=== PATIENT | female | born 1955 | race Caucasian/White ===

== ENCOUNTER → 2016-07-15 | Day surgery (SDC) | payer BC ==
[~2016-07-15] MED LIST: CYAN10005 PO; DOCU-27 PO; ESTR1TAB5 PO; FENTANYL PF 100 MCG/2 ML VIAL. IV PRN; HYDR-2678 PO; HYDROMORPHONE 2 MG/ML VIAL. IV PRN; IV RINGERS,LACTATED 1000ML 1,000 ML IV SCH; LEVO150T5 PO; LIDOCAINE 1% 1 ML SYRINGE. ID PRN; MORPHINE SULFATE 2 MG/ML DISP.SYRIN. IV PRN; NAPR220C4 PO; ONDANSETRON PF 4 MG/2 ML VIAL. IV PRN; PROCHLORPERAZINE 10 MG/2 ML VIAL. IV PRN; PROPOFOL 0 ML IV ONE; PROPOFOL 20 ML IV ONE; SERT100T PO
[2016-07-15 09:05] VITALS: BP 140/68
--- NOTE | 2016-07-16 13:24 | PATHOLOGY ---
PATHOLOGY REPORT * * * * * * * * FINAL DIAGNOSIS: Colorectal biopsy, rectal polyp: - Polypoid segment of ulcerated granulation tissue showing acute and chronic inflammation. COMMENT: Sections of the rectal polyp biopsy reveal a polypoid segment of ulcerated granulation tissue showing acute and chronic inflammation. There are focal hyperplastic glands at the base of the polypoid granulation tissue. There are no adenomatous changes or evidence of malignancy. (JPM:csd; d/t: 07/16/2016) REPORT ELECTRONICALLY SIGNED BY: Rolan Castro M.D. DATE/TIME: 07/16/2016 13:23 * * * * * * * * GROSS PATHOLOGY: Received in formalin labeled "Amy Ramos, rectal polyp," is a segment of ta soft tissue measuring 0.5 cm in maximum dimension. The specimen is submitted entirely in cassette A1. (CAA; 07/15/2016) INITIAL CPT CODE(S): A; 81438 Professional services performed [place] [facility] [place] [address] Technical services performed by [facility] at [address] [place] [address]. SPECIMEN(S) RECEIVED: A.Rectal polyp CLINICAL HISTORY: Rectal bleed PATIENT: AMY RAMOS /AGE: 3 1955 (Age: 60) PATIENT #: [id number] ALT CASE #: SPECIMEN COLLECTION DATE: 07/15/2016 SPECIMEN RECEIVED DATE: 07/15/2016 [facility] - [address] [place] [address] - PHONE: [phone] * * * END OF REPORT * * *
== END ==
LOC: SURG 07:28
PROVIDERS: ATTEND Internal Medicine Gastroenterology
DX: K62.1 Rectal polyp (principal); K57.30 Diverticulosis of large intestine without perforation or abscess without bleeding; K64.0 First degree hemorrhoids; K80.20 Calculus of gallbladder without cholecystitis without obstruction; K29.70 Gastritis, unspecified, without bleeding; K21.9 Gastro-esophageal reflux disease without esophagitis; K44.9 Diaphragmatic hernia without obstruction or gangrene; M19.90 Unspecified osteoarthritis, unspecified site; F32.9 Major depressive disorder, single episode, unspecified; E03.9 Hypothyroidism, unspecified; N28.9 Disorder of kidney and ureter, unspecified; Z72.89 Other problems related to lifestyle; Z98.890 Other specified postprocedural states
CPT/HCPCS: 45385; J2704; 88305

== ENCOUNTER 2016-07-18 12:01 | Emergency (ER) | payer BC ==
[~2016-07-18] VITALS: Ht 167.6 cm; Wt 89.4 kg
[~2016-07-18 12:01] MED LIST changes: -FENTANYL PF 100 MCG/2 ML VIAL. IV PRN; -HYDROMORPHONE 2 MG/ML VIAL. IV PRN; -IV RINGERS,LACTATED 1000ML 1,000 ML IV SCH; -LIDOCAINE 1% 1 ML SYRINGE. ID PRN; -MORPHINE SULFATE 2 MG/ML DISP.SYRIN. IV PRN; -ONDANSETRON PF 4 MG/2 ML VIAL. IV PRN; -PROCHLORPERAZINE 10 MG/2 ML VIAL. IV PRN; -PROPOFOL 0 ML IV ONE; -PROPOFOL 20 ML IV ONE
[2016-07-18 12:30] VITALS: BP 132/76
--- NOTE | 2016-07-18 12:40 | RAD ---
Left ankle and left foot radiographs History: Fall previous day, pain. Comparison: None. Findings: AP, lateral, and oblique views of the left ankle. No acute fracture dislocation is identified. Lateral ankle soft tissue swelling is seen. AP, lateral, and oblique views of the left foot. No acute fracture or dislocation is identified. Plantar calcaneal and Achilles tendon insertional enthesophytes are seen. Impression: 1. No acute osseous traumatic injury identified in the left ankle or left foot. 2. Lateral ankle soft tissue swelling.
--- NOTE | 2016-07-18 13:01 | PHYS DOC ---
Past Medical History Past Medical History: Arthritis, Depression, Hypothyroid Past Surgical History: Cholecystectomy, Other Additional Past Surgical Histo: R TIB/FIB, WISDOM Alcohol Use: Occasionally Drug Use: None Adult General Chief Complaint Chief Complaint: FOOT INJURY PAIN [facility] HPI Patient is a 60 year old female presents to emergency department stating that she fell last night twisting her left ankle. She states that she had left the water on in the laundry room when she went in to turn it off she slipped and fell. She states that she has swelling in the left lateral ankle and foot area. She denies any numbness or tingling to the toes. She has not taken anything for pain and discomfort. She has had no previous injuries to that ankle or foot before. Review of Systems Review of Systems Constitutional: Denies fever or chills [] Eyes: Denies change in visual acuity, redness, or eye pain [] HENT: Denies nasal congestion or sore throat [] Respiratory: Denies cough or shortness of breath [] Cardiovascular: No additional information not addressed in HPI [] Musculoskeletal: Denies back pain. Left ankle/foot pain Integument: Denies rash or skin lesions [] Neurologic: Denies headache, focal weakness or sensory changes [] Allergies Allergies Allergies Coded Allergies Type Severity Reaction Last Updated Verified Penicillins Allergy Severe Rash 07/15/16 Yes adhesive Allergy Intermediate Rash 07/15/16 Yes sulfamethoxazole Allergy Intermediate 07/15/16 Yes trimethoprim Allergy Intermediate 07/15/16 Yes Physical Exam Physical Exam Constitutional: Well developed, well nourished, no acute distress, non-toxic appearance. [] HENT: Normocephalic, atraumatic, bilateral external ears normal, oropharynx moist, no oral exudates, nose normal. [] Eyes: PERRLA, EOMI, conjunctiva normal, no discharge. [] Neck: Normal range of motion, no tenderness, supple, no stridor. [] Cardiovascular:Heart rate regular rhythm, no murmur [] Lungs & Thorax: Bilateral breath sounds clear to auscultation [] Skin: Warm, dry, no erythema, no rash. [] Back: No tenderness Extremities: Left ankle and foot tenderness, no cyanosis, no clubbing, ROM intact, no edema. Patient with slight discoloration along the fourth and fifth metatarsal tarsal area. Patient does have swelling of the foot and ankle, lateral. Peripheral pulses 2+ cap refill brisk less than 2 seconds. Neurologic: Alert and oriented X 3, normal motor function, normal sensory function, no focal deficits noted. [] Psychologic: Affect normal, judgement normal, mood normal. [] Current Patient Data Vital Signs Vital Signs Date Time Temp Pulse Resp B/P Pulse Ox O2 Delivery O2 Flow Rate FiO2 07/18/16 12:30 97.9 79 18 97 Room Air 97.9 EKG EKG [] Radiology/Procedures Radiology/Procedures [[facility] [address] [place] [address] IMAGING REPORT Signed PATIENT: MELCHOR RAMOS ACCOUNT: [id number] : 1955 LOCATION: ER AGE: 60 SEX: F EXAM [id number] STATUS: PRE ER ORD. PHYSICIAN: JAXON PETERS NP REASON: fall pain to foot and ankle yesterday PROCEDURE: ANKLE LEFT 3V; FOOT LEFT 3V Left ankle and left foot radiographs History: Fall previous day, pain. Comparison: None. Findings: AP, lateral, and oblique views of the left ankle. No acute fracture dislocation is identified. Lateral ankle soft tissue swelling is seen. AP, lateral, and oblique views of the left foot. No acute fracture or dislocation is identified. Plantar calcaneal and Achilles tendon insertional enthesophytes are seen. Impression: 1. No acute osseous traumatic injury identified in the left ankle or left foot. 2. Lateral ankle soft tissue swelling. DICTATED and SIGNED BY: DOYLE NAVA MD DATE: 07/18/16 1236 CC: JAXON PETERS NP; BERNARD DHALIWAL MD ~ ] Course & Med Decision Making Course & Med Decision Making Pertinent Labs and Imaging studies reviewed. (See chart for details) She'll be placed in an Reji wrap 5-7 days and Air-Stirrup splint for 7-10 days as well as a postop shoe 7-10 days. Recommended Tylenol for pain and discomfort ice packs on 20 minutes off 20 minutes several times a day elevation as much as possible. Recommended patient to follow up with orthopedic in the next week. Patient will be discharged home in stable condition since symptoms to return back to emergency department as been provided. [] Dragon Disclaimer Dragon Disclaimer This electronic medical record was generated, in whole or in part, using a voice recognition dictation system. Departure Departure Impression: Primary Impression: Left ankle sprain Additional Impression: Sprain of left foot Disposition: HOME, SELF-CARE Condition: STABLE Referrals: BERNARD DHALIWAL MD (PCP) KENISHA BARRIOS MD Patient Instructions: Ankle Sprain, Foot Sprain-Brief Additional Instructions: Home to rest. Ice packs on 20 minutes off 20 minutes several times a day. Elevation as much as possible. Tylenol for pain and discomfort. With the Reji wrap for the next 5-7 days. Wear the Air-Stirrup splint and a postop shoe for the next 7-10 days. Follow-up with orthopedic in the next week. Return back to emergency prior signs and symptoms of become worse. Problem Qualifiers JAXON PETERS NP Jul 18, 2016 13:01
== END 2016-07-18 13:16 | disposition home or self-care (01) ==
LOC: ER 12:01
DX: S93.402A Sprain of unspecified ligament of left ankle, initial encounter (principal); S93.602A Unspecified sprain of left foot, initial encounter; E03.9 Hypothyroidism, unspecified; Z88.0 Allergy status to penicillin; Z88.2 Allergy status to sulfonamides; Z88.8 Allergy status to other drugs, medicaments and biological substances; M19.90 Unspecified osteoarthritis, unspecified site; W01.0XXA Fall on same level from slipping, tripping and stumbling without subsequent striking against object, initial encounter; Y93.89 Activity, other specified; Y99.8 Other external cause status; Y92.89 Other specified places as the place of occurrence of the external cause
CPT/HCPCS: 29515; 73610; 73630; 99284-25

== ENCOUNTER 2019-01-13 16:52 | Emergency (ER) | payer BC ==
[~2019-01-13] VITALS: Ht 170.2 cm; Wt 89.4 kg
[~2019-01-13 16:52] MED LIST changes: +DOCU-109 PO; -DOCU-27 PO
[2019-01-13 17:25] VITALS: BP 138/73
--- NOTE | 2019-01-13 18:06 | RAD ---
Left ankle 3 views. HISTORY: Left ankle injury 3 views were taken of the left ankle. There is soft tissue swelling. There is no acute fracture. There is spurring on the calcaneus. IMPRESSION: 1. Soft tissue swelling left ankle. 2. No fracture or acute osseous abnormality. Electronically signed by: Larry Johnson MD (01/13/2019 6:03 PM) [facility]
--- NOTE | 2019-01-13 18:48 | PHYS DOC ---
Past Medical History Past Medical History: Arthritis, Depression, Hypothyroid Past Surgical History: Cholecystectomy, Other Additional Past Surgical Histo: R TIB/FIB, WISDOM Alcohol Use: Occasionally Drug Use: None Adult General Chief Complaint Chief Complaint: ANKLE PROBLEM HPI HPI 63-year-old female presents to ER for complaints of left ankle pain and swelling. Patient reports she was walking down her steps last night and missed the bottom step causing her to roll her ankle. Patient reports she has been having pain with any weightbearing. Patient denies any other injury. Review of Systems Review of Systems Musculoskeletal: Denies back/neck pain. Reports lt ankle pain- denies pain into foot/heel Integument: Denies abrasions/open wounds Neurologic: Denies headache, focal weakness or sensory changes [] All other systems were reviewed and found to be within normal limits, except as documented in this note. Allergies Allergies Allergies Coded Allergies Type Severity Reaction Last Updated Verified Penicillins Allergy Severe Rash 07/15/16 Yes adhesive Allergy Intermediate Rash 07/15/16 Yes sulfamethoxazole Allergy Intermediate 07/15/16 Yes trimethoprim Allergy Intermediate 07/15/16 Yes Physical Exam Physical Exam Constitutional: Well developed, well nourished, no acute distress, non-toxic appearance. [] HENT: Normocephalic, atraumatic, oropharynx moist, nose normal. [] Eyes: Pupils equal, conjunctiva normal, no discharge. [] Neck: Normal range of motion, supple Cardiovascular: Heart rate regular Lungs & Thorax: Resp. equal/nonlabored Skin: Warm, dry, no erythema Back: No tenderness, no CVA tenderness. [] Extremities: No cyanosis, no clubbing. 2+ dorsalis pedis/posterior tibial lt LE. Medial/lateral edema lt malleolus- no tenderness in foot/heel. Hip/lt knee nontender Neurologic: Alert and oriented X 3, normal motor function, normal sensory function, no focal deficits noted. [] Psychologic: Affect normal, judgement normal, mood normal. [] Current Patient Data Vital Signs Vital Signs Date Time Temp Pulse Resp B/P (MAP) Pulse Ox O2 Delivery O2 Flow Rate FiO2 01/13/19 17:25 98.6 106 18 138/73 (94) 97 Room Air 98.6 EKG EKG [] Radiology/Procedures Radiology/Procedures PROCEDURE: ANKLE LEFT 3V Left ankle 3 views. HISTORY: Left ankle injury 3 views were taken of the left ankle. There is soft tissue swelling. There is no acute fracture. There is spurring on the calcaneus. IMPRESSION: 1. Soft tissue swelling left ankle. 2. No fracture or acute osseous abnormality. Electronically signed by: Larry Johnson MD (01/13/2019 6:03 PM) [facility] DICTATED and SIGNED BY: LARRY JOHNSON MD DATE: 01/13/191802 Course & Med Decision Making Course & Med Decision Making Pertinent Imaging studies reviewed. (See chart for details) 1840: Pt was evaluated in the ER for complaints of left ankle injury which occurred last night. Patient was offered pain medication however preferred no meds as pain was tolerable. X-ray was obtained with report of soft tissue swe lling otherwise no other acute findings. Patient was placed in Reji wrap and air splint to left ankle and she remains PMS intact. Patient has capillary refill in left toes. Crutches will be provided. Discussed home discharge plan with patient to follow-up with orthopedics for reevaluation and further care. Education provided on signs and symptoms to return to ER. Discharge instructions were discussed. Dragon Disclaimer Dragon Disclaimer This electronic medical record was generated, in whole or in part, using a voice recognition dictation system. Departure Departure Impression: Primary Impression: Left ankle sprain Disposition: 01 HOME, SELF-CARE Condition: STABLE Referrals: SADIQ HAWK (PCP) SANGEETHA FLORES II, MD Patient Instructions: Ankle Sprain, Crutch Use, Elastic Bandage and RICE Additional Instructions: As discussed if symptoms persist or with concerns follow-up with an orthopedic doctor for reevaluation and further care. Tylenol and/or ibuprofen as needed for pain as directed on container. SADIQ LEARY ADMINISTRATIVE OFFICE ASSISTANT Jan 13, 2019 18:48
== END 2019-01-13 18:54 | disposition home or self-care (01) ==
LOC: ER 16:52
DX: S93.492A Sprain of other ligament of left ankle, initial encounter (principal); M19.90 Unspecified osteoarthritis, unspecified site; F32.9 Major depressive disorder, single episode, unspecified; E03.9 Hypothyroidism, unspecified; Z90.49 Acquired absence of other specified parts of digestive tract; Z88.0 Allergy status to penicillin; Z88.8 Allergy status to other drugs, medicaments and biological substances; Z88.2 Allergy status to sulfonamides; Z88.1 Allergy status to other antibiotic agents; X50.1XXA Overexertion from prolonged static or awkward postures, initial encounter; Y93.01 Activity, walking, marching and hiking; Y92.89 Other specified places as the place of occurrence of the external cause; Y99.8 Other external cause status
CPT/HCPCS: 73610; 99284